=== PATIENT | male | born 1940 | race Hispanic/Latino ===

== ENCOUNTER 2016-12-24 01:47 | Emergency (ER) | payer MEDICARE, BC ==
[2016-12-24 01:48] VITALS: BMI 34.4
[2016-12-24] MEDS ORDERED: Sodium Chloride 0.9% 500 ML IV STA (02:26)
--- NOTE | 2016-12-24 02:27 | ED PDOC ---
Arrival/HPI - History of Present Illness Time/Duration: Other (2 days) Symptom Onset: Sudden Symptom Course: Unchanged Activities at Onset: Rest, Light Context: Home - General Chief Complaint: Abdominal Pain Time Seen by Provider: 12/24/16 01:48 - History of Present Illness Narrative History of Present Illness (Text): 12/24/16 02:34 Mr. 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 Patient states that since Thursday morning he has had 5 -6 episodes of diarrhea per day with the diarrhea awakening him from sleep. He reports trying immodium this morning with no relief. He has had tried to make his diet as bland as possible also with no relief. He denies any fever, chills, vomiting, hematochezia, burning with urination or any new rash. 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 He states that he suddenly couldnt catch his breath and patients reports that he had "cold sweats" during this episode. He denies any headache, changes in his vision, chest pain, palpitation, edema, cough, wheezing, calf pain, or any focal weakness. (ONELIA LEVY) Past Medical History - Provider Review Nursing Documentation Reviewed: Yes - Travel History Have you recently traveled outside [place] w/in the past 3 mons?: No - Past History Past History: Non-Contributing - Infectious Disease Hx of Infectious Diseases: None - Tetanus Immunization Tetanus Immunization: Unknown - Cardiac Hx Pacemaker: No - Pulmonary Hx Respiratory Disorders: No - Neurological Hx Neurological Disorder: No Hx Paralysis: No - HEENT Other/Comment: r eye - Renal Hx Renal Disorder: No - Endocrine/Metabolic Hx Diabetes Mellitus Type 2: Yes - Hematological/Oncological Hx Blood Transfusions: Yes Hx Blood Transfusion Reaction: No - Integumentary Hx Dermatological Disorder: No - Musculoskeletal/Rheumatological Hx Musculoskeletal Disorders: No - Gastrointestinal Hx Gastrointestinal Disorders: No - Genitourinary/Gynecological Hx Genitourinary Disorders: No - Psychiatric Hx Psychophysiologic Disorder: No Hx Emotional Abuse: No Hx Physical Abuse: No Hx Substance Use: No - Surgical History Hx Coronary Artery Bypass Graft: Yes (2001) Hx Coronary Stent: Yes (x10) Other/Comment: 10 sents. quad bypass - Anesthesia Hx Anesthesia: Yes Hx Anesthesia Reactions: No Hx Malignant Hyperthermia: No - Suicidal Assessment Feels Threatened In Home Enviroment: No Family/Social History - Physician Review Nursing Documentation Reviewed: Yes Family/Social History: Blood Clots (In his father) Smoking Status: Never Smoked Hx Alcohol Use: No Hx Substance Use: No Allergies/Home Meds Allergies/Adverse Reactions: Allergies No Known Allergies Allergy (Verified 12/24/16 01:56) Home Medications: Home Meds Medication Instructions Recorded Confirmed Atorvastatin [Lipitor] 10 mg PO DAILY 05/12/13 12/24/16 Glyburide/Metformin HCl [Glyburide 500 mg PO QID 05/12/13 12/24/16 and Metformin Hydrochloride 5 mg-50] Hormone Ij 1 IJ Q120D 05/12/13 05/12/13 Metoprolol Succinate [Metoprolol 50 mg PO QAM 05/12/13 12/24/16 Succinate Xl] Sitagliptin Phosphate [Januvia] 100 mg PO DAILY 05/12/13 12/24/16 Aspirin [Lo-Dose Aspirin EC] 81 mg PO DAILY 12/24/16 12/24/16 Isosorbide Mononitrate [Isosorbide 120 mg PO DAILY 12/24/16 12/24/16 Mononitrate ER] Valsartan [Diovan] 80 mg PO DAILY 12/24/16 12/24/16 Review of Systems - Physician Review All systems were reviewed & negative as marked: Yes - Review of Systems Constitutional: Night Sweats (Endorses "cold sweats"). absent: Normal, Fevers Eyes: Normal. absent: Vision Changes ENT: Normal Respiratory: SOB. absent: Normal, Cough, Wheezing Cardiovascular: Normal. absent: Chest Pain, Palpitations, Edema, Calf Pain Gastrointestinal: Abdominal Pain, Diarrhea, Nausea. absent: Normal, Constipation, Vomiting, Hematochezia Genitourinary Male: Normal. absent: Dysuria Musculoskeletal: Normal Skin: Normal. absent: Rash Neurological: Normal. absent: Headache, Focal Weakness Endocrine: Normal Hemo/Lymphatic: Normal Psychiatric: Normal Physical Exam Vital Signs Reviewed: Yes Temperature: Afebrile Blood Pressure: Normal Pulse: Regular Respiratory Rate: Normal Appearance: Positive for: Well-Appearing, Non-Toxic, Comfortable Pain Distress: None Mental Status: Positive for: Alert and Oriented X 3 - Systems Exam Head: Present: Atraumatic, Normocephalic Pupils: Present: PERRL Extroacular Muscles: Present: EOMI Conjunctiva: Present: Normal Mouth: Present: Moist Mucous Membranes Pharnyx: Present: Normal. No: ERYTHEMA, EXUDATE, TONSILS ENLARGED Neck: Present: Normal Range of Motion, Trachea Midline. No: Meningeal Signs, MIDLINE TENDERNESS, Paraspinal Tenderness, JVD, Lymphadenopathy Respiratory/Chest: Present: Clear to Auscultation, Good Air Exchange. No: Respiratory Distress, Accessory Muscle Use, Wheezes, Decreased Breath Sounds, Rales, Retracting, Rhonchi, Tachypneic, Tender to Palpation Cardiovascular: Present: Regular Rate and Rhythm, Normal S1, S2. No: Murmurs Abdomen: Present: Distention, Normal Bowel Sounds. No: Tenderness, Peritoneal Signs, Rebound, Guarding Back: Present: Normal Inspection. No: CVA Tenderness, Midline Tenderness, Paraspinal Tenderness Upper Extremity: Present: Normal Inspection. No: Cyanosis, Edema Lower Extremity: Present: Normal Inspection. No: Edema Neurological: Present: GCS=15, CN II-XII Intact, Speech Normal Skin: Present: Warm, Dry, Normal Color. No: Rashes Lymphatic: No: Cervical Adenopathy Psychiatric: Present: Alert, Oriented x 3, Normal Insight, Normal Concentration Vital Signs Pulse Resp BP Pulse Ox 12/24/16 01:57 76 21 132/61 93 L Medical Decision Making - Lab Interpretations I have reviewed the lab results: Yes - RAD Interpretation Manager Law: Radiologist - EKG Interpretation Interpreted by ED Physician: Yes Type: 12 lead EKG ED Course and Treatment: Patient Seen With Resident: In agreement with resident note which contains more details about the patient. Patient was seen and evaluated with resident. Came up with plan and treatment together. 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 Plan: -CBC, CMP, Cardiac Iso's, BNP, Lipase, UA, VBG, PT/INR and aPTT -EKG -Chest X-Ray -500cc NS bolus Prior Visits: All results and reports from previous visits reviewed 03/10/16-Patient was seen and evaluated for nose bleed (ONELIA LEVY) - Lab Interpretations Lab Results: 12/24/16 03:00 12/24/16 03:00 Lab Results 12/24/16 04:00: pCO2 36, pO2 69.0 L, HCO3 16.2 L, ABG pH 7.26 L, ABG Total CO2 17.3 L, ABG O2 Saturation 95.6, ABG Base Excess -10.0 L, ABG Potassium 3.7, Sodium 137.0, Chloride 108.0 H, Glucose 246 H, Lactate 1.7, FiO2 21.0, Arterial Blood Potassium 3.7 12/24/16 03:00: D-Dimer, Quantitative 0.67 H 12/24/16 03:00: pO2 42, VBG pH 7.13 L*, VBG pCO2 58.0, VBG HCO3 19.3 L, VBG Total CO2 21.1 L, VBG O2 Sat (Calc) 74.3 H, VBG Base Excess -10.4 L, VBG Potassium 4.7, Sodium 136.0, Chloride 104.0, Glucose 236 H, Lactate 2.9 H, FiO2 21.0, Venous Blood Potassium 4.7 12/24/16 03:00: PT 11.5, INR 1.06, APTT 26.1 12/24/16 03:00: Sodium 140, Chloride 105, Potassium 4.8, Carbon Dioxide 19 L, Anion Gap 21 H, BUN 30 H, Creatinine 1.5, Est GFR ( Amer) 55, Est GFR ( Non-Af Amer) 46, Random Glucose 229 H, Calcium 10.2, Total Bilirubin 0.8, AST 26 , ALT 27, Alkaline Phosphatase 82, Lactate Dehydrogenase 424, Total Creatine Kinase 72, Troponin I 0.03, NT-Pro-B Natriuret Pep 453 H, Total Protein 8.3, Albumin 4.7, Globulin 3.6, Albumin/Globulin Ratio 1.3, Lipase 220 12/24/16 03:00: WBC 8.5, RBC 6.03, Hgb 12.7 L, Hct 39.7 L, MCV 65.8 L, MCH 21.1 L, MCHC 32.0, RDW 15.9 H, Plt Count 188, MPV 10.3, Gran % 75.3 H, Lymph % (Auto ) 17.2 L, [place] % (Auto) 5.5, Eos % (Auto) 1.9, Baso % (Auto) 0.1, Gran # 6.38, Lymph # 1.5, [place] # 0.5, Eos # 0.2, Baso # 0.01 12/24/16 02:45: pO2 99 H, VBG pH 7.17 L*, VBG pCO2 50.0, VBG HCO3 18.2 L, VBG Total CO2 19.7 L, VBG O2 Sat (Calc) 98.2 H, VBG Base Excess -10.4 L, VBG Potassium 6.2 H*, Sodium 136.0, Chloride 104.0, Glucose 228 H, Lactate 3.0 H, FiO2 21.0, Venous Blood Potassium 6.2 H* - RAD Interpretation Radiology Orders: 12/24/16 02:22 CHEST PORTABLE [RAD] Stat 12/24/16 03:44 ABD & PELVIS W/O PO OR IV CONT [CT] Stat 12/24/16 05:26 LUNG PERF & VENT SCAN [NM] Stat - Medication Orders Current Medication Orders: Discontinued Medications Sodium Chloride (Sodium Chloride 0.9%) 500 mls @ 999 mls/hr IV .Q31M STA Stop: 12/24/16 02:56 Last Admin: 12/24/16 03:12 Dose: 999 mls/hr eMAR Start Stop Document 12/24/16 03:12 [facility] (Rec: 12/24/16 03:13 [facility] [id number]) Intravenous Solution Start Date 12/24/16 Start Time 02:50 End Date 12/24/16 End time 03:50 Total Infusion Time 60 Ondansetron HCl (Zofran Inj) 4 mg IVP STAT STA Stop: 12/24/16 03:47 Last Admin: 12/24/16 03:58 Dose: 4 mg IVP Administration Document 12/24/16 03:58 SMA (Rec: 12/24/16 03:59 SMA [id number]) Charges for Administration # of IVP Administrations 1 Disposition/Present on Arrival - Present on Arrival Any Indicators Present on Arrival: No History of DVT/PE: No History of Uncontrolled Diabetes: No Urinary Catheter: No History of Decub. Ulcer: No History Surgical Site Infection Following: None - Disposition Have Diagnosis and Disposition been Completed?: No Disposition Time: 06:22 - Disposition Diagnosis: Diarrhea, Gallstone, Shortness of breath Condition: STABLE Referrals: Justice Larose MD [Primary Care Provider] - Follow up with primary Forms: [employer] (Luxembourgish)
[2016-12-24 03:07] LABS: VENOUS BLOOD GAS BASE EXCESS -10.4 mmol/L (0.0-2.0)
[2016-12-24 03:10] LABS: VENOUS BLOOD PH 7.17 (7.32-7.43)
[2016-12-24 03:23] LABS: BASO # 0.01 K/mm3 (0.0-2.0); BASO % 0.1 % (0.0-3.0); EOS # 0.2 (0.0-0.7); EOS % 1.9 % (1.5-5.0); GRAN # 6.38 (1.4-6.5); GRAN % 75.3 % (50.0-68.0); HEMATOCRIT 39.7 % (42.0-52.0); LYMPH # 1.5 (1.2-3.4); LYMPH % 17.2 % (22.0-35.0); MEAN CELL VOLUME 65.8 fl (80.0-105.0); MEAN CORPUSCULAR HEMOGLOBIN 21.1 pg (25.0-35.0); MEAN PLATELET VOLUME 10.3 fl (7.0-11.0); MONO # 0.5 (0.1-0.6); MONO % 5.5 % (1.0-6.0); RED CELL DISTRIBUTION WIDTH 15.9 % (11.5-14.5); VENOUS BLOOD GAS BASE EXCESS -10.4 mmol/L (0.0-2.0); WHITE BLOOD COUNT 8.5 10^3/ul (4.5-11.0)
[2016-12-24 03:26] LABS: INR 1.06 (0.93-1.08); PARTIAL THROMBOPLASTIN TIME 26.1 Seconds (23.7-30.8)
[2016-12-24 03:27] LABS: VENOUS BLOOD PH 7.13 (7.32-7.43)
[2016-12-24 03:30] LABS: ALB/GLOB RATIO 1.3 (1.1-1.8); BILIRUBIN,TOTAL 0.8 mg/dL (0.2-1.3); CALCIUM 10.2 mg/dL (8.4-10.5); POTASSIUM 4.8 mmol/L (3.6-5.0); TOTAL PROTEIN 8.3 g/dL (5.8-8.3)
[2016-12-24 03:42] LABS: TROPONIN I 0.03 ng/mL
[2016-12-24 04:18] LABS: ARTERIAL BLOOD GAS HCO3 16.2 mmol/L (21-28); ARTERIAL BLOOD GAS PH 7.26 (7.35-7.45)
--- NOTE | 2016-12-24 05:53 | CT ---
EXAM: CT Abdomen and Pelvis Without Intravenous Contrast CLINICAL HISTORY: 76 years old, male; Pain; Abdominal pain; Additional info: Abd pain/distention TECHNIQUE: Axial computed tomography images of the abdomen and pelvis without intravenous contrast. All CT scans at this facility use one or more dose reduction techniques, viz.: automated exposure control; ma/kV adjustment per patient size (including targeted exams where dose is matched to indication; i.e. head); or iterative reconstruction technique. Coronal and sagittal reformatted images were created and reviewed. COMPARISON: No relevant prior studies available. FINDINGS: Lower thorax: The bilateral lung bases are clear. ABDOMEN: Liver: No acute findings Gallbladder and bile ducts: Dependent calcified stones within the gallbladder, which is only minimally distended. No intra-extrahepatic biliary ductal dilation. Pancreas: Fatty replacement, otherwise limited evaluation secondary to the lack of intravenous contrast. Spleen: No acute findings. Adrenals: No acute findings. Kidneys and ureters: No obstructing stones. No hydronephrosis. PELVIS: Bladder: The bladder demonstrates a thickened wall, with surrounding inflammatory change, findings suggesting bladder inflammation. Reproductive: The prostate gland is moderately enlarged, and demonstrates brachytherapy seeds. Appendix: The appendix is of normal-caliber (series 2, image 106; series 602, image 54). ABDOMEN and PELVIS: Stomach and bowel: Mural thickening at the level of the splenic flexure, likely peristaltic. Peritoneum: No acute findings. Lymph nodes: Limited evaluation without intravenous contrast. Vasculature: No aortic aneurysm. Calcified atherosclerotic disease is identified. Bones: No acute fracture. IMPRESSION: Cholelithiasis. Moderate bladder wall thickening with surrounding inflammation.
--- NOTE | 2016-12-24 07:14 | ED PDOC ---
Physical Exam Vital Signs Reviewed: Yes Vital Signs Temp Pulse Resp BP Pulse Ox 12/24/16 11:26 98.2 F 87 17 142/75 98 12/24/16 09:06 98.2 F 84 17 133/73 96 12/24/16 07:22 77 18 114/67 98 12/24/16 07:18 71 18 119/59 L 97 12/24/16 07:12 98.0 F 12/24/16 07:11 98.4 F 12/24/16 01:57 76 21 132/61 93 L Temperature: Afebrile Blood Pressure: Normal Pulse: Regular Respiratory Rate: Normal Appearance: Positive for: Well-Appearing Pain Distress: None Mental Status: Positive for: Alert and Oriented X 3 Medical Decision Making ED Course and Treatment: 12/24/16 07:13 Awaiting follow-up VQ study and disposition. 12/24/16 08:42 Patient resting comfortable and in no painful or respiratory distress. Denies any symptoms at this time. He feels better. V/Q scan pending. Radiology states it can be completed at 11 and patient and agree to stay and wait. 12/24/2016 11:42 LUNG PERF & VENT SCAN IMPRESSION: Low probability ventilation perfusion scan for pulmonary embolism. Dictator: Alfred Rosenthal MD Patient is feeling much better and no longer has symptoms. V/Q negative. He will make sure to follow up with his primary care doctor in 1-2days and return to the ED if symptoms worsen or any other concerns. He was also advised to continue hydration. - Lab Interpretations Lab Results: 12/24/16 03:00 12/24/16 03:00 Lab Results 12/24/16 04:00: pCO2 36, pO2 69.0 L, HCO3 16.2 L, ABG pH 7.26 L, ABG Total CO2 17.3 L, ABG O2 Saturation 95.6, ABG Base Excess -10.0 L, ABG Potassium 3.7, Sodium 137.0, Chloride 108.0 H, Glucose 246 H, Lactate 1.7, FiO2 21.0, Arterial Blood Potassium 3.7 12/24/16 03:00: D-Dimer, Quantitative 0.67 H 12/24/16 03:00: pO2 42, VBG pH 7.13 L*, VBG pCO2 58.0, VBG HCO3 19.3 L, VBG Total CO2 21.1 L, VBG O2 Sat (Calc) 74.3 H, VBG Base Excess -10.4 L, VBG Potassium 4.7, Sodium 136.0, Chloride 104.0, Glucose 236 H, Lactate 2.9 H, FiO2 21.0, Venous Blood Potassium 4.7 12/24/16 03:00: PT 11.5, INR 1.06, APTT 26.1 12/24/16 03:00: Sodium 140, Chloride 105, Potassium 4.8, Carbon Dioxide 19 L, Anion Gap 21 H, BUN 30 H, Creatinine 1.5, Est GFR ( Amer) 55, Est GFR ( Non-Af Amer) 46, Random Glucose 229 H, Calcium 10.2, Total Bilirubin 0.8, AST 26 , ALT 27, Alkaline Phosphatase 82, Lactate Dehydrogenase 424, Total Creatine Kinase 72, Troponin I 0.03, NT-Pro-B Natriuret Pep 453 H, Total Protein 8.3, Albumin 4.7, Globulin 3.6, Albumin/Globulin Ratio 1.3, Lipase 220 12/24/16 03:00: WBC 8.5, RBC 6.03, Hgb 12.7 L, Hct 39.7 L, MCV 65.8 L, MCH 21.1 L, MCHC 32.0, RDW 15.9 H, Plt Count 188, MPV 10.3, Gran % 75.3 H, Lymph % (Auto ) 17.2 L, [place] % (Auto) 5.5, Eos % (Auto) 1.9, Baso % (Auto) 0.1, Gran # 6.38, Lymph # 1.5, [place] # 0.5, Eos # 0.2, Baso # 0.01 12/24/16 02:45: pO2 99 H, VBG pH 7.17 L*, VBG pCO2 50.0, VBG HCO3 18.2 L, VBG Total CO2 19.7 L, VBG O2 Sat (Calc) 98.2 H, VBG Base Excess -10.4 L, VBG Potassium 6.2 H*, Sodium 136.0, Chloride 104.0, Glucose 228 H, Lactate 3.0 H, FiO2 21.0, Venous Blood Potassium 6.2 H* - RAD Interpretation Radiology Orders: 12/24/16 02:22 CHEST PORTABLE [RAD] Stat 12/24/16 03:44 ABD & PELVIS W/O PO OR IV CONT [CT] Stat 12/24/16 05:26 LUNG PERF & VENT SCAN [NM] Stat - Medication Orders Current Medication Orders: Discontinued Medications Sodium Chloride (Sodium Chloride 0.9%) 500 mls @ 999 mls/hr IV .Q31M STA Stop: 12/24/16 02:56 Last Admin: 12/24/16 03:12 Dose: 999 mls/hr eMAR Start Stop Document 12/24/16 03:12 SMA (Rec: 12/24/16 03:13 SMA [id number]) Intravenous Solution Start Date 12/24/16 Start Time 02:50 End Date 12/24/16 End time 03:50 Total Infusion Time 60 Ondansetron HCl (Zofran Inj) 4 mg IVP STAT STA Stop: 12/24/16 03:47 Last Admin: 12/24/16 03:58 Dose: 4 mg IVP Administration Document 12/24/16 03:58 SMA (Rec: 12/24/16 03:59 SMA [id number]) Charges for Administration # of IVP Administrations 1 - Scribe Statement The provider has reviewed the documentation as recorded by the Tanvir Farnsworth Provider Scribe Attestation: All medical record entries made by the Scribe were at my direction and personally dictated by me. I have reviewed the chart and agree that the record accurately reflects my personal performance of the history, physical exam, medical decision making, and the department course for this patient. I have also personally directed, reviewed, and agree with the discharge instructions and disposition. Disposition/Present on Arrival - Present on Arrival Any Indicators Present on Arrival: No History of DVT/PE: No History of Uncontrolled Diabetes: No Urinary Catheter: No History of Decub. Ulcer: No History Surgical Site Infection Following: None - Disposition Have Diagnosis and Disposition been Completed?: Yes Diagnosis: Diarrhea, Shortness of breath Disposition: HOME/ ROUTINE Disposition Time: 13:00 Patient Plan: Discharge Condition: IMPROVED Discharge Instructions (ExitCare): Gastroenteritis (ED), Acute Abdominal Pain ( ED), Dyspnea (ED) Additional Instructions: Mr Avila, thank you for letting us take care of you today. Your provider was Dr. Leung. You were treated for Diarrhea, Shortness of breathe. The emergency medical care you received today was directed at your acute symptoms. If you were prescribed any medication, please fill it and take as directed. It may take several days for your symptoms to resolve. Return to the Emergency Department if your symptoms worsen, do not improve, or if you have any other problems. Please contact your doctor or call one of the physicians/clinics you have been referred to that are listed on the Patient Visit Information form that is included in your discharge packet. Bring any paperwork you were given at discharge with you along with any medications you are taking to your follow up visit. Our treatment cannot replace ongoing medical care by a primary care provider (PCP) outside of the emergency department. Thank you for allowing the [facility] team to be part of your care today. If you had an X-Ray or CT scan: A Radiologist will review the ED reading if any change in treatment is needed we will contact you. If you had a blood, urine, or wound culture: It will take several days for the results, if any change in treatment is needed we will contact you. If you had an STI test: It will take 48 hours for the results. Please call after 1 week if you have not heard back. Prescriptions: Ondansetron ODT [Zofran ODT] 4 mg PO Q6 #14 odt Referrals: Justice Larose MD [Primary Care Provider] - Follow up with primary Forms: [employer] (Malay)
--- NOTE | 2016-12-24 08:52 | RAD ---
HISTORY: SOB COMPARISON: No prior. FINDINGS: LUNGS: No active pulmonary disease. PLEURA: No significant pleural effusion identified, no pneumothorax apparent. CARDIOVASCULAR: Normal. OSSEOUS STRUCTURES: Sternal wires VISUALIZED UPPER ABDOMEN: Normal. OTHER FINDINGS: None. IMPRESSION: No active disease.
[2016-12-24 09:07] VITALS: RESP 17
--- NOTE | 2016-12-24 11:44 | NM ---
COMPARISON: December 24, 2016. TECHNIQUE: 33.0 mCi technetium 99-m Xe-133 Gas. 3.6 mCI technetium 99-m MAA administered intravenously. FINDINGS: VENTILATION COMPONENT: Normal.Retention of radionuclide in the tracheobronchial tree and ingestion of radionuclide in the stomach, incidental findings PERFUSION COMPONENT: Heterogeneous distribution of radionuclide. No geographic, segmental, lobar abnormalities apparent on the present examination. IMPRESSION: Low probability ventilation perfusion scan for pulmonary embolism.
[2016-12-24 13:07] VITALS: BP 158/82; PULSE 85; TEMP 98.6; O2SAT 96
--- NOTE | 2016-12-24 21:57 | CARD ---
APPROVED REPORT EKG Measurement Heart [id number] IL [id number] [id number] <Conclusion> Sinus rhythm with 1st degree AV block with occasional premature ventricular complexes Inferior infarct, age undetermined Abnormal ECG
== END 2016-12-24 13:07 | disposition home or self-care (01) ==
LOC: ED 01:47
DX: R19.7 Diarrhea, unspecified (principal); R06.02 Shortness of breath; E11.9 Type 2 diabetes mellitus without complications; E78.5 Hyperlipidemia, unspecified; I10 Essential (primary) hypertension; I25.10 Atherosclerotic heart disease of native coronary artery without angina pectoris
CPT/HCPCS: 71010; 74176; 78582; 80053; 82550; 82803; 83615; 83690; 83880; 84484; 85025; 85378; 85610; 85730; 93005; 96361; 96374; 99285; J2405; J7040